=== PATIENT | male | born 1965 | race Hispanic/Latino ===

== ENCOUNTER 2018-04-01 08:48 | Day surgery (SDC) | payer MEDICARE | END 2018-04-01 12:30 | disposition home or self-care (01) | LOC: DAH 08:48 → SDC 08:48 | PROVIDERS: ATTEND Internal Medicine Hematology & Oncology | DX: Z45.2 Encounter for adjustment and management of vascular access device (principal); Z79.899 Other long term (current) drug therapy | CPT/HCPCS: 36569; 71045; 76937; 82948 ×2; C1894 ==